=== PATIENT | female | born 1990 | race Caucasian/White ===

== ENCOUNTER 2016-09-16 10:47 | Emergency (ER) | payer SELFPAY ==
[2015-01-11 01:27] VITALS: BMI 27.4
[~2016-09-16 10:47] MED LIST: FERROUS SULFAT325 MG PO; IBUPROFEN400 MG PO; KEFLEX500 MG PO; PERCOCET 5-3251 TAB PO; PROAIR HFA8.5 GM INH; ZITHROMAX250 MG PO
[2016-09-16 13:30] LABS: APPEARANCE HAZY (CLEAR); BILIRUBIN NEGATIVE (NEGATIVE); COLOR YELLOW (YELLOW); GLUCOSE NEGATIVE (NEGATIVE); KETONE NEGATIVE (NEGATIVE); LEUKOCYTE ESTERASE TRACE (NEGATIVE); NITRITE NEGATIVE (NEGATIVE); PROTEIN NEGATIVE (NEGATIVE); SPECIFIC GRAVITY 1.015 (1.005-1.020); UROBILINOGEN NORMAL (NORMAL)
[2016-09-16 13:31] LABS: BACTERIA MANY /hpf (NONE SEEN); MUCUS <1+ /lpf (NONE SEEN); RED CELLS - URINE RARE /hpf (0-5)
== END 2016-09-16 15:20 | disposition home or self-care (01) ==
LOC: D.ER 10:47
PROVIDERS: Emergency Medicine
DX: N76.0 Acute vaginitis (principal); Z20.2 Contact with and (suspected) exposure to infections with a predominantly sexual mode of transmission

== ENCOUNTER 2016-11-16 12:07 | Emergency (ER) | payer OTHER ==
[2015-01-11 01:27] VITALS: BMI 27.4
[2016-11-16 13:19] LABS: APPEARANCE CLEAR (CLEAR); BILIRUBIN NEGATIVE (NEGATIVE); COLOR YELLOW (YELLOW); GLUCOSE NEGATIVE (NEGATIVE); KETONE NEGATIVE (NEGATIVE); LEUKOCYTE ESTERASE NEGATIVE (NEGATIVE); NITRITE NEGATIVE (NEGATIVE); PROTEIN NEGATIVE (NEGATIVE); SPECIFIC GRAVITY 1.005 (1.005-1.020); UROBILINOGEN NORMAL (NORMAL)
== END 2016-11-16 13:57 | disposition home or self-care (01) ==
LOC: D.ER 12:07
PROVIDERS: Nurse Practitioner Acute Care
DX: O26.892 Other specified pregnancy related conditions, second trimester (principal); Z3A.21 21 weeks gestation of pregnancy; H92.02 Otalgia, left ear; H66.92 Otitis media, unspecified, left ear; O23.592 Infection of other part of genital tract in pregnancy, second trimester

== ENCOUNTER 2016-12-04 11:39 | Emergency (ER) | payer SELFPAY ==
[2015-01-11 01:27] VITALS: BMI 27.4
[2016-12-04 12:45] LABS: APPEARANCE TURBID (CLEAR); BILIRUBIN NEGATIVE (NEGATIVE); COLOR YELLOW (YELLOW); GLUCOSE NEGATIVE (NEGATIVE); KETONE SMALL mg/dL (NEGATIVE); LEUKOCYTE ESTERASE 1+ (NEGATIVE); NITRITE NEGATIVE (NEGATIVE); PROTEIN NEGATIVE (NEGATIVE); SPECIFIC GRAVITY 1.015 (1.005-1.020); UROBILINOGEN NORMAL (NORMAL)
[2016-12-04 12:46] LABS: AMORPHOUS SEDIMENT <1+ /lpf (NONE SEEN); BACTERIA MANY /hpf (NONE SEEN); MUCUS <1+ /lpf (NONE SEEN); RED CELLS - URINE RARE /hpf (0-5)
== END 2016-12-04 14:08 | disposition home or self-care (01) ==
LOC: D.ER 11:39
PROVIDERS: Emergency Medicine
DX: O23.42 Unspecified infection of urinary tract in pregnancy, second trimester (principal); Z3A.24 24 weeks gestation of pregnancy; B37.3 Candidiasis of vulva and vagina

== ENCOUNTER 2016-12-24 03:11 | Outpatient (CLI) | payer BC ==
[2015-01-11 01:27] VITALS: BMI 27.4
[2016-12-24 05:42] LABS: UDS - AMPHET NEGATIVE QUAL (NEGATIVE); UDS - BARB NEGATIVE QUAL (NEGATIVE); UDS - BENZO NEGATIVE QUAL (NEGATIVE); UDS - COCAINE NEGATIVE QUAL (NEGATIVE); UDS - METH NEGATIVE QUAL (NEGATIVE); UDS - OPIATE NEGATIVE QUAL (NEGATIVE); UDS - PCP NEGATIVE QUAL (NEGATIVE); UDS - THC POSITIVE QUAL (NEGATIVE)
== END 2016-12-24 05:34 | disposition home or self-care (01) ==
LOC: D.LDO 03:11
PROVIDERS: Obstetrics & Gynecology
DX: O26.892 Other specified pregnancy related conditions, second trimester (principal); Z3A.28 28 weeks gestation of pregnancy; Y04.2XXA Assault by strike against or bumped into by another person, initial encounter; Y93.89 Activity, other specified; Y92.59 Other trade areas as the place of occurrence of the external cause

== ENCOUNTER → 2017-02-10 22:30 | Outpatient (CLI) | payer MEDICAID ==
[2015-01-11 01:27] VITALS: BMI 27.4
[~2017-02-10 22:30] MED LIST changes: +IBUPROFEN800 MG PO; +PERCOCET 7.5/321 TAB PO; +PHENERGAN DM SYR5 ML PO; +PRENATAL COMPLE1 TAB PO
[2017-02-10 23:40] LABS: APPEARANCE CLEAR (CLEAR); BACTERIA MANY /hpf (NONE SEEN); BILIRUBIN NEGATIVE (NEGATIVE); COLOR YELLOW (YELLOW); EPITHELIAL CELLS 0-5 /hpf (0-5); GLUCOSE NEGATIVE (NEGATIVE); KETONE NEGATIVE (NEGATIVE); NITRITE NEGATIVE (NEGATIVE); PROTEIN NEGATIVE (NEGATIVE); UROBILINOGEN NORMAL (NORMAL); WHITE CELLS - URINE 0-5 /hpf (0-5)
== END | disposition home or self-care (01) ==
LOC: D.LDO 22:30
PROVIDERS: Obstetrics & Gynecology
DX: O26.893 Other specified pregnancy related conditions, third trimester (principal); Z3A.34 34 weeks gestation of pregnancy; R10.30 Lower abdominal pain, unspecified

== ENCOUNTER 2017-03-16 12:41 | Inpatient (IN) | payer MEDICAID ==
[~2017-03-16] VITALS: Ht 172.7 cm; Wt 94.3 kg
[~2017-03-16 12:41] MED LIST changes: -IBUPROFEN800 MG PO; -PERCOCET 7.5/321 TAB PO; -PHENERGAN DM SYR5 ML PO; -PRENATAL COMPLE1 TAB PO
[2017-03-16 13:31] LABS: APPEARANCE CLEAR (CLEAR); BILIRUBIN NEGATIVE (NEGATIVE); COLOR YELLOW (YELLOW); GLUCOSE NEGATIVE (NEGATIVE); KETONE NEGATIVE (NEGATIVE); NITRITE NEGATIVE (NEGATIVE); PROTEIN NEGATIVE (NEGATIVE); SPECIFIC GRAVITY 1.015 (1.005-1.020); UROBILINOGEN NORMAL (NORMAL)
[2017-03-16 16:58] LABS: UDS - AMPHET NEGATIVE QUAL (NEGATIVE); UDS - BARB NEGATIVE QUAL (NEGATIVE); UDS - BENZO NEGATIVE QUAL (NEGATIVE); UDS - COCAINE NEGATIVE QUAL (NEGATIVE); UDS - OPIATE NEGATIVE QUAL (NEGATIVE); UDS - PCP NEGATIVE QUAL (NEGATIVE); UDS - THC POSITIVE QUAL (NEGATIVE)
[2017-03-16] MEDS ORDERED: PRENATAL COMPLE1 TAB PO (18:55)
[2017-03-16 19:00] LABS: HEMATOCRIT 35.2 % (36.0-48.0); HEMOGLOBIN 11.6 g/dL (12-16); MCH 30.1 pg (26.0-34.0); MCV 91.2 fL (80.0-100.0); MEAN PLATELET VOLUME 10.9 fL (7.4-10.4); RBC 3.86 10x6/uL (4.00-5.40); RDW 13.7 % (11.5-14.5); WBC 16.5 10x3/uL (4.8-10.8)
[2017-03-16 19:34] VITALS: BP 134/70; Ht 172.7 cm; Wt 94.3 kg
[2017-03-17] VITALS (13 sets, daily range): BP systolic 109–121; BP diastolic 54–76
--- NOTE | 2017-03-17 08:00 | NUR ---
FUNDUS IS FIRM, MIDLINE AT THE UMBILICUS. CHEYENNE PAD IN PLACE.
--- NOTE | 2017-03-17 08:08 | NUR ---
RING CATHETER EMPTIED 100ML URINE IN OR.
--- NOTE | 2017-03-17 08:36 | NUR ---
RECEIVED PT FROM VIA BED TO ROOM 1218. BED LOCKED AND PLACED IN LOW POSITION. VSS. HRRR WITHOUT AUDIBLE MURMUR. BBS CLEAR. BS HYPOACTIVE X 4 QUADS. ABDOMEN SOFT/NON-DISTENDED. FUNDUS FIRM AT U/U. RUBRA LOCHIA MOD AMT. CHUX CHANGED. PERIPADS AND TOWEL IN PLACE. PT MOVES WELL IN BED. NEG HOMANS' SIGN. PPP. NO EDEMA NOTED TO BLE. SCDS ON BLE. PUMP ON. RING TO GRAVITY DRAINING DARK, CONCENTRATED URINE. PIV OF NS WITH PITOCIN 20 UNITS INFUSING AT 125 ML/HR VIA ALARIS PUMP. SITE CLEAR TO RIGHT FOREARM. ICE PACK TO INCISION. DRESSING DRY WITHOUT DRAINAGE NOTED. PT ORIENTED TO ROOM, BED, AND CALL LIGHT. SR UPX 2. CALL LIGHT IN REACH.
--- NOTE | 2017-03-17 08:47 | NUR ---
MORPHINE OINTMENT MILL TENDER STARTED ORDERED. PT INSTRUCTED ON MEDICATION AND USE OF BUTTON. PT DEMONSTRATES UNDERSTANDING.
--- NOTE | 2017-03-17 09:06 | NUR ---
PT WAKES UPON VERBAL STIMULATION. STATES PAIN CONTINUES AT "7" ON 0-10 PAIN SCALE. TORADOL 30 MG GIVEN SIVP OVER 2 MINUTES. PT INSTRUCTED ON MED. VERBALIZES UNDERSTANDING.
--- NOTE | 2017-03-17 10:24 | NUR ---
PT MORE AWAKE. VSS. FUNDUS FIRM AT U/1. RUBRA LOCHIA MOD AMT. NO CLOTS EXPRESSED. PERICARE DONE. TOWEL AND PERIPADS CHANGED. PT REPOSITIONS TO LEFT SIDE. PROPPED WITH PILLOWS. ICE PACK TO INCISION. PT PROVIDED LEMON YOMBA SHOSHONE SODA. ENCOURAGED TO CONSUME SLOWLY.
--- NOTE | 2017-03-17 11:07 | NUR ---
PT LYING TO LEFT SIDE. EYES CLOSED. RESP NON-LABORED. PT NOT DISTURBED TO ALLOW FOR REST. SR UP X 2. CALL LIGHT IN REACH.
--- NOTE | 2017-03-17 12:27 | NUR ---
PT SITTING UP IN BED. VISITS WITH GRANDMOTHER AND ADOPTIVE PARENTS. INFANT IN ROOM. PT DENIES NEEDS OR C/O.
--- NOTE | 2017-03-17 13:15 | NUR ---
I/O COMPLETED. PERICARE DONE. TOWEL AND PERIPADS CHANGED. PT MOVES WELL IN BED. PT REPOSITIONS TO RIGHT SIDE IN BED. PROPPED WITH PILLOW.
--- NOTE | 2017-03-17 14:05 | NUR ---
VSS. PT REPOSITIONS SUPINE IN BED. PILLOWS PLACED BEHIND PT KNEES FOR PT C/O BACK PAIN. PT STATES WILL REST. LIGHTS OUT AND HEAT TURNED DOWN PER PT REQUESTS.
--- NOTE | 2017-03-17 15:20 | NUR ---
DR VANG NOTIFIED OF PT STATUS. NEW ORDERS RECEIVED.
--- NOTE | 2017-03-17 15:28 | NUR ---
TORADOL 30 MG GIVEN SIVP OVER 2 MINUTES. PT INSTRUCTED ON MED. VERBALIZES UNDERSTANDING.
--- NOTE | 2017-03-17 16:30 | NUR ---
PT SITTING UP IN BED. PT OTHER CHILD IN PT LAP. PT SISTER IN ROOM WITH ADOPTIVE FAMILY. PT REQUESTS SISTER OR ADOPTIVE MOM TO COME TO ROOM TO CHANGE OTHER CHILD.
--- NOTE | 2017-03-17 16:35 | NUR ---
PT INFORMED THAT CHILD CANNOT SPEND THE NIGHT WITH PT. PT STATES THE ADOPTIVE MOM WILL HELP CARE FOR OTHER CHILD.
--- NOTE | 2017-03-17 17:15 | NUR ---
PT MANAGER PAID LIGHT. REQUESTS HYGIENE PRODUCTS. ADOPTIVE MOM IN ROOM, ALONG WITH PT OTHER CHILD. PT AGAIN INFORMED THAT CHILD CANNOT STAY WITH PT WITHOUT ANOTHER ADULT WITH PT. PT STATES WILL FIND SOMEONE TO COME GET CHILD.
--- NOTE | 2017-03-17 17:39 | NUR ---
PT SITTING UP IN BED. CONSUMING REG DIET. DENIES NEEDS OR C/O.
--- NOTE | 2017-03-17 17:45 | NUR ---
PIV CONVERTED TO SALINE LOCK. RING DC'D WITH 300 ML OF DARK, YELLOW URINE NOTED IN BAG. PT OOB AND AMB TO BR. VOIDS FREELY WITHOUT CATCHING URINE IN SPECIPAN. PERIARE DONE PER PT. PANTIES AND PADS ON. GOWN CHANGED. BED LINENS CHANGED. PT BACK TO BED. KELLY ACTIVITY WELL.
--- NOTE | 2017-03-17 18:55 | NUR ---
REPORT GIVEN TO ON-COMING SHIFT. PT CALLS ON LIGHT. REQUESTING PAIN MEDICATION.
--- NOTE | 2017-03-17 19:02 | NUR ---
PATIENT SITTING UP IN BED, BED LOCKED IN LOW POSITION. CALL GORMAN IN REACH. FAMILY AT BEDSIDE. PERCOCET 5/325MG TWO TABS PO AT THIS TIME WITH WATER FOR 7/10 INCISIONAL PAIN. DENIES OTHER NEEDS. PATIENT INSTRUCTED TO CALL WITH ANY FURTHER NEEDS.
--- NOTE | 2017-03-17 19:45 | NUR ---
ASSESSMENT PER FLOW SHEET, SALINE LOCK IN RIGHT FA INTACT WITH NO REDNESS OR EDEMA, FF, ML, U/1, BIKINI INC WITH SMALL DRESSING INTACT WITH DRIED DRAINAGE NOTED, FRESH ICE PACK TO ABD, LIGHT BLEEDING NOTED WITH NO CLOTS ON CHEYENNE PAD, PT DENIES FLATUS, PT INST ON VOIDING, PT VERBALIZES UNDERSTANDING, PT REQUESTED AND PROVIDED JAYNA CRACKER AND H20 FOR DAUGHTER, PT DENIES FURTHER NEEDS AT THIS TIME, FRIEND AT BEDSIDE
--- NOTE | 2017-03-17 20:25 | NUR ---
PT VISTING WITH FRIEND, 2 YEAR OLD DAUGHTER LAYING IN RECLINER, PT INQUIRES WHAT TIME HER DAUGHTER NEEDED TO GO HOME, PT INFORMED NO LATER THAN 10/11 PM, PT STATES "OK, MY FRIEND GETS OFF WORK AROUND 8:30 AND WILL BE LEAVING AROUND RRsat AROUND THAT TIME", PT REQUESTED AND PROVIDED PEANUT BUTTER, JELLY, AND CRACKERS FOR DAUGHTER, PT DENIES FURTHER NEEDS OR PAIN AT THIS TIME, TRASH REMOVED
--- NOTE | 2017-03-17 21:45 | NUR ---
PT JUST COMING OUT OF BR, WASHED HANDS, SALINE LOCK FLUSHED, ADM TORADOL DILUTED IN SALINE SIVP, SALINE LOCK FLUSHED, PT REQUESTS TO AMB IN LAW, INFORMED PT THAT SHE CAN AMB AROUND UNIT ONLY, PT VERBALIZES UNDERSTANDING, EXTRA GOWN AND BLUE SOCKS PROVIDED, WENT TO E[employer]TY [employer], PT STATES "I'M SORRY, I KEEP FORGETTING TO PEE IN THAT", PT REPORTS VOIDING A LARGE AMOUNT, PT INST TO USE [employer] NEXT TIME, PT VERBALIZES UNDERSTANDING, DENIES FURTHER NEEDS AT THIS TIME
--- NOTE | 2017-03-17 22:29 | NUR ---
PT AMB IN LAW, GAIT STEADY, REQUESTED AND SERVED FRESH H20, PT GOES TO ROOM WITH ADOPTIVE PARENTS
--- NOTE | 2017-03-17 23:02 | NUR ---
PT BACK IN ROOM, PT REQUESTS AMBIEN TO HELP HER SLEEP, STATES "I'M REALLY HAVING A HARD TIME BEING AWAY FROM MY OTHER DAUGHTER", ADM YASMEENIEN AND MYLICON PO PER MD ORDERS, SEE EMAR, SCD'S PLACED ON AND WORKING PROPERLY, VS OBTAINED, PT DENIES FURTHER NEEDS
--- NOTE | 2017-03-18 01:04 | NUR ---
PT AWAKE, TEARY EYED, JUST UPSET BECAUSE SHE DOESN'T LIKE TO BE AWAY FROM HER DAUGHTER AND REPORTS THAT SHE KEEPS CALLING HER FRIEND AND SHE KEEP HANGING UP ON HER, PT C/O PAIN, ADM PERCOCET PO PER MD ORDERS, SEE EMAR, WITH FRESH H20, SCD'S CONTINUE ON AND WORKING PROPERLY, PT DENIES FURTHER NEEDS, MALE FRIEND AT BEDSIDE
--- NOTE | 2017-03-18 01:22 | NUR ---
PT WEIGHT TRAINING INSTRUCTOR LIGHT, REQUESTED AND SERVED APPLESAUCE, DENIES FURTHER NEEDS
--- NOTE | 2017-03-18 01:55 | NUR ---
PT INFORMATION DEVELOPER LIGHT, SCD'S REMOVED, PT UP TO BR, GAIT STEADY, PT INST TO USE CALL LIGHT FOR ANY NEEDS AND WHEN BACK TO BED, PT VERBALIZES UNDERSTANDING
--- NOTE | 2017-03-18 02:10 | NUR ---
PT WEBSPHERE COMMERCE ARCHITECT LIGHT, PT BACK TO BED, SCD'S RECONNECTED AND WORKING PROPERLY, EMPTIED 650 MLS OF LIGHTLY BLOOD TINGED URINE, 1 SMALL STRINGY CLOT NOTED, EMPTIED FROM [place] HAT, PT RATES PAIN 11/21, STATES "IT'S GETTING BETTER", PT DENIES FURTHER NEEDS
[2017-03-18 03:52] VITALS: BP 108/62
--- NOTE | 2017-03-18 03:52 | NUR ---
PT RESTING WITH EYES CLOSED, AROUSES TO SOFT VERBAL STIMULATION, VS OBTAINED, SALINE LOCK FLUSHED, ADM TORADOL, DILUTED IN NS, SIVP PER MD ORDERS, SEE EMAR, SALINE LOCK FLUSHED, PT DENIES NEEDS OR PAIN AT THIS TIME, SCD'S CONTINUE ON AND WORKING PROPERLY
--- NOTE | 2017-03-18 04:36 | NUR ---
PT RESTING WITH EYES CLOSED, RESP QUIET, NO DISTRESS NOTED, LEFT UNDISTURBED AT THIS TIME, SCD'S CONTINUE ON AND WORKING PROPERLY
--- NOTE | 2017-03-18 06:16 | NUR ---
PT RESTING WITH EYES CLOSED, RESP QUIET, NO DISTRESS NOTED, LEFT UNDISTURBED AT THIS TIME
[2017-03-18 06:32] LABS: BASOPHILS 0.1 % (0-2); EOSINOPHILS 1.1 % (0-7); IMMATURE GRANULOCYTES 0.4 % (0-5); LYMPHOCYTES 15.6 % (15-50); MCH 30.2 pg (26.0-34.0); MCHC 33.2 g/dL (31.0-37.0); MCV 90.8 fL (80.0-100.0); MEAN PLATELET VOLUME 10.7 fL (7.4-10.4); MONOCYTES 6.1 % (2-11); NEUTROPHILS 76.7 % (40-80); PLATELET COUNT 235 10x3/uL (130-400)
[2017-03-18 06:33] LABS: HEMATOCRIT 26.8 % (36.0-48.0); HEMOGLOBIN 8.9 g/dL (12-16); RBC 2.95 10x6/uL (4.00-5.40)
--- NOTE | 2017-03-18 07:00 | NUR ---
SHIFT REPORT TO ALEXEI PEDRO RN
[2017-03-18 07:25] VITALS: BP 107/59
[2017-03-18 07:28] LABS: RAPID PLASMA REAGIN Non Reactive (Non Reactive)
--- NOTE | 2017-03-18 07:30 | NUR ---
PT IS RECEIVED LYING IN BED THIS AM. SHE STATES THAT SHE IS JUST WAKING UP. GEN- AWAKE, ALERT. LUNGS- CLEAR. HEART- RRR. ABD- WITH LOW TRANSVERSE INCISION WITH PRIMAPORE DRESSING. SMALL AMT DRIED BLOOD NOTE DON DRESSING. SMALL VAGINAL BLEEDING. SHE HAS VOIDED X 3. EXT- WITH SCD'S INTACT LE. BED IS LOW. SIDE RAILS UP X 2 AND CALL LIGHT IN REACH. SHE STATES THAT HER PAIN IS A 7-8. SALINE LOCK NOTED R FOREARM. PATENT.
--- NOTE | 2017-03-18 08:00 | NUR ---
DR VANG IS HERE TO SEE PT. NEW ORDERS REVIEWED.
--- NOTE | 2017-03-18 08:20 | NUR ---
PT REQUESTED PAIN MED. PERCOCET 10/ 325 GIVEN FOR A PAIN OF 8 IN HER ABDOMEN AND BACK.
--- NOTE | 2017-03-18 08:29 | NUR ---
PT STATES THAT HER 2 YEAR OLD DAUGHTER IS STAYING UP HER TONIGHT WITH HER BECAUSE SOMEONE ELSE WAS STAYING WITH HER. SHE STATES THAT SHE HAS THIS APPROVED. I TOLD HER THAT I JUST HAD TO MAKE SURE THIS IS OK. I CHECKED WITH SHARA ESCALANTE PREFORM PLATE MAKER AND SHE STATES THAT IT IS OK FOR HER 2 YEAR OLD TO STAY UP HERE IF THERE IS SOMEONE ELSE UP HERE TO TAKE CARE OF THE CHILD.
--- NOTE | 2017-03-18 13:00 | NUR ---
PT AND HER 2 YEAR OLD ARE SLEEPING IN BED. BED IS LOW, SIDE RAILS UP X 2 AND CALL LIGHT IN REACH.
--- NOTE | 2017-03-18 13:38 | NUR ---
PT WOKE UP AND HER DAUGHTER. MOTHER STATES THAT HER CHILD IS SICK WITH A COLD. MOTHER REQUEST PAIN MED.
--- NOTE | 2017-03-18 14:00 | NUR ---
PT REQESTED TORADOL. GAVE IV PUSH SLOWLY IN SALINE LOCK R FOREARM AND FLUSHED WITH SALINE.
--- NOTE | 2017-03-18 14:05 | NUR ---
LATE ENTRY: PT. TO DOOR W/TEARS IN HER EYES REQUESTING THIS RN TO ROOM. THIS RN TO ROOM. PT CRYING AND STATING "THAT OTHER NURSE IS SO MEAN! SHE GAVE ME MY MEDICINE IN MY IV AND I TOLD HER THAT IT WAS HURTING AND ASKED HER NOT TO PUSH THE MEDICINE SO FAST. AND SHE SAID WELL, THAT'S HOW WE DO IT." PT C/O PAIN AT IV SITE STILL. IV SITE INSPECTED. SITE LEAKING, REDNESS, SWELLING, TENDERNESS AND WARMTH NOTED. IV APPEARS INFILTRATED. SALINE LOCK REMOVED INTACT. BANDAID PLACED OVER SITE. PT STILL CONTINUES TO C/O ABOUT PRIMARY NURSE'S ATTITUDE AND UNPLEASANT PERSONALITLY. PT REQUEST THAT NURSE NOT CARE FOR HER ANYMORE. PT INFORMED PER THIS RN THAT SHE WILL BE TRANSFERED TO A NEW ROOM AND A DIFFERENT NURSE WILL ASSUME CARE OF HER. PT IS PLEASED WITH THIS POC AND IS AGREEABLE TO BEING TRANSFERED. PT TRANSFERED AMB TO [facility]. ORIENTED TO ROOM, CALL LIGHT AND PHONE NUMBERS. PERSONAL CARE ITEMS PROVIDED FOR PT TO SHOWER. PT QUESTIONED ABOUT WHO WILL BE HERE TO STAY WITH HER 2YRS OLD DAUGHTER. PT REPORTS THE ADOPTIVE FATHER OF THE NBN WILL BE STAYING IN THE ROOM W/PT TO CARE FOR THE 2YR OLD. THIS RN SPEAKS WITH ADOPTIVE MOTHER AND SHE CONFIRMS THAT THE ADOPTIVE FATHER WILL BE THE RESPONSIBILE ADULT TO CARE FOR THE 2YR OLD. PT W/OUT C/O. PAIN ASSESSED. PT REPORTS SHE HAS INCISIONAL PAIN THAT SHE RATES 7-8/10. REQUEST PAIN MEDICATION ONCE SHE IS OUT OF THE SHOWER. 2YR OLD HAS DONE TO [facility] W/ADOPTIVE FATHER AT THIS TIME. REPORT GIVEN TO Pieter TIERNEY RN
--- NOTE | 2017-03-18 14:15 | NUR ---
PT WAS TRANSFERRED TO [facility] AND LABOR AND DELIVERY WILL TAKE OVER PT'S CARE.
--- NOTE | 2017-03-18 15:30 | NUR ---
PT IN SHOWER. REQUESTS MYLICON CHEW TAB FOR GAS. PT INSTRUCTED TO CALL NURSE WHEN FINISHED WITH SHOWER. PT VERBALIZES UNDERSTANDING.
--- NOTE | 2017-03-18 16:17 | NUR ---
LATE ENTRY: PT MEDICATED W/PERCOCET 5/325MG TAB PER REQUEST SO SHE WON'T BE DROWZY WHEN HER DAUGHTER RETURNS. SIMETHICONE 80MG PO GIVEN FOR PT C/O GAS PAIN.
--- NOTE | 2017-03-18 17:20 | NUR ---
PT C/O INCISIONAL/ABDOMINAL PAIN OF "7" ON 0-10 PAIN SCALE. PERCOCET 5/325 GIVEN PO ORDERED. PT INSTRUCTED ON MED. VERBALIZES UNDERSTANDING.
--- NOTE | 2017-03-18 17:45 | NUR ---
PT CALLS ON LIGHT. STATES "I COUGHED AND I THINK I PULLED APART MY INCISOIN". PT TO BED. INCISION WITH ALL ML INTACT. NO REDNESS, SWELLING OR DRAINAGE NOTED TO INCISION. PERIPAD TO INCISION. PT REASSURED.
--- NOTE | 2017-03-18 18:12 | NUR ---
PT AMBULATORY IN ROOM. STATES PAIN NOW "3" ON 0-10 PAIN SCALE. STATES C/O MILD BURNING TO INCISION. PT INFORMED THAT BURNING IS COMMON. PT VERBALIZES UNDERSTANDING.
--- NOTE | 2017-03-18 19:20 | NUR ---
RN TO PT BS FOR LI. PT SITTING ON COUCH, IN NO ACUTE DISTRESS, INTERACTING WITH TODDLER DAUGHTER. PT IS A 26YO G6 NOW WITH PRIMARY C/S 03/17/17 @ 0711. INFANT @ 39.6 WKS GESTATION, VIABLE FEMALE . PRIMARY C/S FOR FAILURE TO DESCEND. INFANT IN PROCESS OF ADOPTION. ADOPTIVE PARENTS IN HOUSE TO CARE FOR . AAOX3. HR REGULAR. LUNGS CTAB. ABDOMEN SOFT AND NON TENDER. BS ACTIVE TIMES 4. LOWER TRANSVERSE INCISION NOTED TO ABDOMEN. INCISION WITH ML IN PLACE, WELL PROXIMATED WITH NO REDNESS, EDEMA, OR DRAINAGE NOTED TO SITE. FUNDUS NOT PALPATED. PT STATES SHE IS PASSING GAS BUT HAS NOT HAD A BM SINCE C/S. DESIRES STOOL SOFTNER. PT DENIES DIFFICULTY VOIDING. CHEYENNE PAD AND PANTIES IN PLACE. LOCHIA RUBRA SCANT. NO IV ACCESS AT THIS TIME. PT RATES PAIN 4/10. MEDICATION SCHEDULE REVIEWED WITH PT. QUESTIONS ANSWERED. VERBALIZED UNDERSTANDING. PT DENIES ANY NEEDS AT THIS TIME. BED IN LOW POSITION, SIDE RAILS UP TIMES 2, CALL LIGHT AND PHONE IN REACH. WILL CONT TO MONITOR PT STATUS.
[2017-03-18 19:33] VITALS: BP 120/82
--- NOTE | 2017-03-18 19:59 | NUR ---
MORGAN PROVIDED TO PT PER DR. VANG'S ORDERS. TREAT BOX PROVIDED TO PT. PT DENIES ANY FURTHER NEEDS AT THIS TIME. BED IN LOW POSITION, SIDE RAILS UP TIMES 2, CALL LIGHT AND PHONE IN REACH. WILL CONT TO MONITOR PT STATUS.
--- NOTE | 2017-03-18 21:12 | NUR ---
RN CALLED TO PT BS. PT C/O PAIN, RATES 11/21, REQUESTS MEDICATION. 1 TAB IBUPROFEN AND 2 TABS PERCOCET 5 PROVIDED TO PT AT THIS TIME. LINENS PROVIDED TO PT CHILD FOR NIGHT. COUCH PULLED NEXT TO PT BS AND LINENS PLACED TO BED. RN WILL ASSIST ADOPTIVE PARENTS IN MONITORING TODDLER WHILE SLEEPING. PT DENIES ANY FURTHER NEEDS AT THIS TIME. BED IN LOW POSITION, SIDE RAILS UP TIMES 2, CALL LIGHT AND PHONE IN REACH. WILL CONT TO MONITOR PT STATUS.
--- NOTE | 2017-03-18 22:15 | NUR ---
RN TO PT BS FOR ROUNDS. PT RESTING IN BED IN FOWLERS POSITION, PT VERY TEARFUL. RN DISCUSSED ISSUES THAT WERE CONCERNING HER. PT MAINLY CONCERNED ABOUT ADOPTIVE FAMILY AND THE CHOICE TO GIVE HER UP FOR ADOPTION, EVEN THOUGH SHE IS AWARE IT IS THE BEST CHOICE FOR THE INFANT. CONCERNS ADRESSED BY RN. PT DESIRES MEDICATION TO ASSIST WITH SLEEP. AMBIEN 10MG PROVIDED TO PT PO AT THIS TIME. PT DENIES ANY FURTHER NEEDS. BED IN LOW POSITION, SIDE RAILS UP TIMES 2, CALL LIGHT AND PHONE IN REACH. TODDLER REMAINS AT PT BS, ON COUCH, SLEEPING AT THIS TIME. WILL CONT TO MONITOR PT STATUS.
--- NOTE | 2017-03-18 23:32 | NUR ---
RN TO PT BS FOR ROUNDS. PT SITTING IN BED IN NO ACUTE DISTRESS, TEXTING ON PHONE. PT DENIES ANY NEEDS AT THIS TIME. BED IN LOW POSITION, SIDE RAILS UP TIMES 2, CALL LIGHT AND PHONE IN REACH. TODDLER REMAINS ASLEEP AT PT BS. WILL CONT TO MONITOR PT STATUS.
--- NOTE | 2017-03-19 02:24 | NUR ---
RN TO PT BS FOR ROUNDS. PT RESTING IN BED IN FOWLERS POSITION, WITH EYES CLOSED, IN NO ACUTE DISTRESS. RESPIRATIONS EVEN AND UNLABORED. BED IN LOW POSITION, SIDE RAILS UP TIMES 2, CALL LIGHT AND PHONE IN REACH. TODDLER REMAINS AT PT BS ASLEEP ON COUCH. WILL CONT TO MONITOR PT STATUS.
--- NOTE | 2017-03-19 04:51 | NUR ---
RN TO PT BS FOR ROUNDS. PT RESTING IN BED IN FOWLERS POSITION, WITH EYES CLOSED, IN NO ACUTE DISTRESS. RESPIRATIONS EVEN AND UNLABORED. BED IN LOW POSITION, SIDE RAILS UP TIMES 2, CALL LIGHT AND PHONE IN REACH. TODDLER REMAINS ASLEEP ON COUCH NEXT TO BED. WILL CONT TO MONITOR PT STATUS.
--- NOTE | 2017-03-19 06:01 | NUR ---
RN CALLED TO PT BS WITH C/O PAIN, RATES 12/22, REQUESTS MEDICATION. 1 TAB IBUPROFEN AND 2 TABS PERCOCET 5 PROVIDED TO PT AT THIS TIME WITH FRESH SPRITE. PT DENIES ANY FURTHER NEEDS. BED IN LOW POSITION, SIDE RAILS UP TIMES 2, CALL LIGHT AND PHONE IN REACH. TODDLER REMAINS AT PT BS ON COUCH SLEEPING. WILL CONT TO MONITOR PT STATUS.
[2017-03-19 07:15] VITALS: BP 118/80
--- NOTE | 2017-03-19 07:15 | NUR ---
RECEIVED PT SITTING UP IN BED. 2 YEAR OLD DAUGHTER IN BED WITH PT. PT AWAKE. AAO X 4. VSS. HRRR WITHOUT AUDIBLE MURMUR. BBS CLEAR. BS X 4. ABDOMEN SOFT/NON-DISTENDED. ABDOMINAL INCISION OPEN TO AIR. ML INTACT. NO REDNESS, SWELLING OR DRAINAGE NOTED. NEG HOMANS' SIGN. PPP. MILD NON-PITTING EDEMA NOTED TO BLE. PT DENIES C/O OR NEEDS. SR UPX2 . CALL LIGHT IN REACH.
--- NOTE | 2017-03-19 08:00 | NUR ---
DR VANG HERE. VISITS WITH PT. NEW ORDERS RECEIVED.
--- NOTE | 2017-03-19 08:23 | NUR ---
PT CALLS ON LIGHT. REQUESTS AND RECEIVES TOWELS.
[2017-03-19] MEDS ORDERED: PHENERGAN DM SYR5 ML PO (09:16)
[2017-03-19] MEDS ORDERED: PERCOCET 7.5/321 TAB PO (09:16)
[2017-03-19] MEDS ORDERED: IBUPROFEN800 MG PO (09:17)
--- NOTE | 2017-03-19 09:49 | NUR ---
PT AMBULATORY IN ROOM. PT GIVEN INFORMATION SHEETS ON TDAP AND MMR. PT DECLINES FLU VACCINE.
--- NOTE | 2017-03-19 10:41 | NUR ---
PT LYING SUPINE IN BED. 2 YEAR OLD IN BED WITH PT. PT DENIES PAIN OR NEEDS.
--- NOTE | 2017-03-19 12:30 | NUR ---
PT VISITING WITH ATTORNY AT THIS TIME. REQUESTS PERCOCET AND MOTRIN FOR C/O INCISIONAL PAIN OF "7" ON 0-10 PAIN SCALE.
--- NOTE | 2017-03-19 12:43 | NUR ---
PERCOCET 5/325 2 TABS AND MOTRIN 600 MG, MYLICON 80 MG GIVEN PO FOR PT C/O INCISIONAL/GAS PAIN OF "7" ON 0-10 PAIN SCALE. PT INSTRUCTED ON MEDS. VERBALIZES UNDERSTANDING.
--- NOTE | 2017-03-19 13:42 | NUR ---
DISCHARGE INSTRUCTIONS GIVEN TO PT. PT VERBALIZES UNDERSTANDING OF ALL INSTRUCTIONS. COPIES GIVEN TO PT. PT GIVEN RX FOR PERCOCET 7.5 AND MOTRIN 800 MG.
--- NOTE | 2017-03-19 14:15 | NUR ---
PT AMBULATORY IN ROOM. PREPARING FOR DISCHARGE.
--- NOTE | 2017-03-19 15:15 | NUR ---
PT DISCHARGED IN STABLE CONDITION VIA AMBULATORY PER PT REQUEST TO [facility] IN FRONT EXIT. PT KELLY WELL.
--- NOTE | 2017-03-19 22:28 | OP ---
PATIENT NAME: DERIC KULKARNI MEDICAL RECORD: [id number] :90 LOCATION:[id number] ADMISSION DATE:03/16/17 SURGEON: TAJ VANG MD DATE OF OPERATION: 03/17/2017 PREDELIVERY DIAGNOSES: 1. Active labor at term. 2. Arrest of dilation. POSTOPERATIVE DIAGNOSES: 1. Active labor at term. 2. Arrest of dilation. PROCEDURE: Primary low transverse section. SURGEON: Taj Vang MD ANESTHESIOLOGIST: Jean Claude OLIVA. ANESTHETIC: Continuous lumbar epidural. FINDINGS: Viable female infant, DORIAN presentation with large caput. Blood-tinged urine noted at the close of the procedure. Uterus, tubes, and ovaries were unremarkable. ESTIMATED BLOOD LOSS: 850 cc. URINE OUTPUT: 100 cc of blood-tinged urine. FLUIDS: 1400 cc of Lactated Ringer's. COMPLICATIONS: None. DRAINS: Zavala to gravity. INDICATIONS: The patient is a 26-year-old parous female in active labor. The patient progressed and arrested at anterior lip. There was increased swelling with the anterior lip and increased molding. Some variable decelerations were noted prior to the procedure. DESCRIPTION OF PROCEDURE: After informed consent was assured, the patient was taken to the operating room where anesthetic is assessed and found to be adequate after she was prepped and draped. Incisions made on the lower abdomen, carried down to the underlying layer of the fascia, which is opened in the midline and extended laterally. The rectus bellies were in the midline after being dissected free of the fascia. The peritoneum was entered and an Edson O retractor inserted and tightened. A bladder blade was inserted and a low transverse hysterotomy was performed after development of a bladder flap. The was delivered on to the abdomen atraumatically. The cord was doubly clamped and cut. This is the cord clamping that occurs after reducing a tight nuchal cord. After the infant was passed to the attendants, placenta was delivered via Crede maneuver. Uterus is cleared of all clot and debris and closed in a running locked fashion with Vicryl. Continued bleeding from the left corner necessitated O'[place]burgh stitch. This was OPERATIVE REPORT [id number] DERIC KULKARNI performed. Pressure is applied and hemostasis achieved. The incision is inspected. Adequate hemostasis is achieved and the patient. The pelvis was now irrigated with water. Inspection of the bladder flap reveals an unremarkable bladder and inspection reveals no obvious injury. There is no rosalba blood in the catheter. The rectus bellies are inspected and found to be hemostatic and the fascia was closed with a looped PDS. Subcutaneous tissues were irrigated, bleeding vessels cauterized, and then the tissue reapproximated with plain gut stitch. [place] are applied. Sterile dressing is applied. Sponge, lap, and needle count has been correct times 3. The patient will be sent to labor and delivery for her care. TRANSINT:[id number] Voice Confirmation ID: [id number] DOCUMENT ID: [id number] TAJ VANG MD at 2228 CC: [id number] DICTATION DATE: 03/17/17 0751 [employer] ENGINEER: 03/17/17 1133 DIS IN 03/19/17 [facility] [address] [place] [address]
== END 2017-03-19 15:15 | disposition home or self-care (01) | DRG 765 ==
LOC: D.LDO 12:41 → D.WS 18:30 → D.LD 18:30 → D.WS 03-17 08:00 → D.LD 03-18 14:48
PROVIDERS: ADMIT Obstetrics & Gynecology
PROC: 10D00Z1 Extraction of Products of Conception, Low, Open Approach (ICD-10-PCS; principal; 2017-03-17 07:00)
DX: O62.1 Secondary uterine inertia (principal); O99.324 Drug use complicating childbirth; O76 Abnormality in fetal heart rate and rhythm complicating labor and delivery; O69.1XX0 Labor and delivery complicated by cord around neck, with compression, not applicable or unspecified; O77.0 Labor and delivery complicated by meconium in amniotic fluid; Z3A.39 39 weeks gestation of pregnancy; F12.90 Cannabis use, unspecified, uncomplicated; Z37.0 Single live birth

== ENCOUNTER 2017-05-28 03:42 | Emergency (ER) | payer MEDICAID ==
[~2017-05-28 03:42] MED LIST changes: +IBUPROFEN800 MG PO; +PERCOCET 7.5/321 TAB PO; +PHENERGAN DM SYR5 ML PO; +PRENATAL COMPLE1 TAB PO
[2017-05-28 04:11] LABS: BASOPHILS 0.3 % (0-2); EOSINOPHILS 4.1 % (0-7); HEMATOCRIT 38.4 % (36.0-48.0); HEMOGLOBIN 12.6 g/dL (12-16); IMMATURE GRANULOCYTES 0.1 % (0-5); LYMPHOCYTES 42.9 % (15-50); MCH 28.6 pg (26.0-34.0); MCHC 32.8 g/dL (31.0-37.0); MCV 87.1 fL (80.0-100.0); MEAN PLATELET VOLUME 9.8 fL (7.4-10.4); MONOCYTES 6.9 % (2-11); NEUTROPHILS 45.7 % (40-80); PLATELET COUNT 255 10x3/uL (130-400); RBC 4.41 10x6/uL (4.00-5.40); RDW 13.7 % (11.5-14.5); WBC 7.2 10x3/uL (4.8-10.8)
[2017-05-28 04:24] LABS: APPEARANCE HAZY (CLEAR); BILIRUBIN NEGATIVE (NEGATIVE); COLOR YELLOW (YELLOW); GLUCOSE NEGATIVE (NEGATIVE); KETONE NEGATIVE (NEGATIVE); NITRITE NEGATIVE (NEGATIVE); PROTEIN NEGATIVE (NEGATIVE); SPECIFIC GRAVITY 1.015 (1.005-1.020); UROBILINOGEN NORMAL (NORMAL)
[2017-05-28 04:25] LABS: WHITE CELLS - URINE 0-5 /hpf (0-5)
[2017-05-28 04:26] LABS: BACTERIA MODERATE /hpf (NONE SEEN); EPITHELIAL CELLS 0-5 /hpf (0-5); RED CELLS - URINE 0-5 /hpf (0-5)
[2017-05-28 04:27] LABS: ALBUMIN 3.9 g/dL (3.4-5.0); ALKALINE PHOSPHATASE 70 U/L (46-116); ALT (SGPT) 31 U/L (10-68); CALC OSMOLALITY 279 mosm/kg (275-300); CALCIUM 8.5 mg/dL (8.5-10.1); CARBON DIOXIDE 25.4 mmol/L (21.0-32.0); CHLORIDE - SERUM 104 mmol/L (98-107); CREATININE - SERUM 0.9 mg/dL (0.6-1.3); GLUCOSE 95 mg/dL (74-106); LIPASE 176 U/L (73-393); POTASSIUM - SERUM 3.8 mmol/L (3.5-5.1); PROTEIN - SERUM 7.6 g/dL (6.4-8.2); SODIUM 140 mmol/L (136-145); UREA NITROGEN 16 mg/dL (7-18); eGFR NON AFRICAN AMERICAN 80 mL/min (90-120)
[2017-05-28 04:30] LABS: HCG SERUM NEGATIVE (NEGATIVE)
== END 2017-05-28 04:48 | disposition home or self-care (01) ==
LOC: D.ER 03:42
PROVIDERS: Emergency Medicine
DX: N39.0 Urinary tract infection, site not specified (principal)

== ENCOUNTER 2017-07-23 07:45 | Day surgery (SDC) | payer MEDICAID ==
[2017-07-21 16:38] LABS: BASOPHILS 0.3 % (0-2); EOSINOPHILS 3.5 % (0-7); HEMATOCRIT 37.5 % (36.0-48.0); HEMOGLOBIN 12.2 g/dL (12-16); IMMATURE GRANULOCYTES 0.1 % (0-5); LYMPHOCYTES 38.1 % (15-50); MCH 29.3 pg (26.0-34.0); MCHC 32.5 g/dL (31.0-37.0); MCV 89.9 fL (80.0-100.0); MEAN PLATELET VOLUME 9.7 fL (7.4-10.4); MONOCYTES 5.5 % (2-11); NEUTROPHILS 52.5 % (40-80); PLATELET COUNT 253 10x3/uL (130-400); RBC 4.17 10x6/uL (4.00-5.40); RDW 14.7 % (11.5-14.5); WBC 7.4 10x3/uL (4.8-10.8)
[~2017-07-23] VITALS: Ht 172.7 cm; Wt 81.6 kg
--- NOTE | ~2017-07-23 | OP ---
PATIENT NAME: DERIC KULKARNI MEDICAL RECORD: [id number] :90 LOCATION:D.OPS ADMISSION DATE: SURGEON: TAJ VANG MD DATE OF OPERATION: 07/23/2017 PREOPERATIVE DIAGNOSES: 1. Pelvic pain. 2. Dysfunctional uterine bleeding. POSTOPERATIVE DIAGNOSES: 1. Pelvic pain. 2. Dysfunctional uterine bleeding. 3. Pelvic adhesions. 4. Possible uterine polypoid mass. PROCEDURES: 1. Diagnostic laparoscopy. 2. Laparoscopic lysis of adhesions. 3. Hysteroscopy. 4. Curettage. SURGEON: Taj Vang MD ANESTHESIOLOGIST: Denny Valles MD ANESTHESIA: General. FINDINGS: The uterus is enlarged and boggy. There were dense adhesions anteriorly to the abdominal wall. At the time of hysteroscopy, polypoid mass is seen arising from the anterior uterine wall. Scant to moderate amount of tissue returned at the time of curettage. SPECIMEN REMOVED: Endometrial curettings. SPECIMEN DISPOSITION: Pathology. ESTIMATED BLOOD LOSS: Minimal. FLUIDS: 1 liter. URINE OUTPUT: Quantity sufficient void prior to procedure. COMPLICATIONS: None. DRAINS: None. INDICATIONS: The patient is a 26-year-old female with heavy irregular periods and intense pelvic pain. The patient has been tried on conservative therapy without resolution of symptoms and desires aggressive management. DESCRIPTION OF PROCEDURE: After informed consent was assured, the patient was taken to the operating room, anesthetic was obtained without difficulty. The patient is now prepped and draped in the usual sterile fashion and has been placed in Hayden stirrups. Incisions made at the umbilicus to accommodate a 5-mm trocar which is inserted without difficulty and pneumoperitoneum was developed. OPERATIVE REPORT [id number] DERIC KULKARNI Accessory ports placed in the midline, 2 fingerbreadths above the symphysis. Through this port, a blunt probe was used to manipulate the bowel free of the pelvis with the patient in Trendelenburg position. The uterus is inspected. A dense band of tissue is encountered anteriorly. The tissue is taken down with Bovie cautery and monopolar setting of 20. After this had been freed, the inspection of the lower pelvis and rest of the abdomen is unremarkable. The trocars were removed. Pneumoperitoneum has been released and the skin was reapproximated. Attention was directed to the vagina where the cervix was grasped, dilated, and a hysteroscopy was performed. A polypoid mass is seen arising from the anterior wall of the uterus. Dilation continues and a #1 curette is used to obtain good cry throughout with removal of the mass and tissue sent to pathology. The single tooth tenaculum was removed. Sponge, lap, and needle counts correct times 2. The patient is awakened and went to the recovery room in stable condition. TRANSINT:[id number] Voice Confirmation ID: [id number] DOCUMENT ID: [id number] TAJ VANG MD at 1648 CC: [id number] DICTATION DATE: 07/23/[address] JUDGE: 07/23/17 1709 [facility] 07/23/[address] [facility] [address] [place] [address]
[2017-07-23 07:37] VITALS: BP 114/72; Ht 172.7 cm; Wt 81.6 kg
[~2017-07-23 07:45] MED LIST changes: +TYLENOL W/CODEI1 TAB
[2017-07-23 08:11] LABS: HCG URINE NEGATIVE (NEGATIVE)
== END 2017-07-23 16:43 | disposition home or self-care (01) ==
LOC: D.OPS 07:45
PROVIDERS: Obstetrics & Gynecology
DX: N73.6 Female pelvic peritoneal adhesions (postinfective) (principal); N93.8 Other specified abnormal uterine and vaginal bleeding; N71.1 Chronic inflammatory disease of uterus; N85.8 Other specified noninflammatory disorders of uterus; Z01.812 Encounter for preprocedural laboratory examination

== ENCOUNTER 2018-09-22 18:11 | Emergency (ER) | payer MEDICAID ==
[2018-09-22 18:16] VITALS: BMI 26.0
[2018-09-22 18:48] LABS: BASOPHILS 0.2 % (0-2); EOSINOPHILS 1.9 % (0-7); HEMATOCRIT 39.3 % (36.0-48.0); HEMOGLOBIN 13.6 g/dL (12-16); IMMATURE GRANULOCYTES 0.1 % (0-5); MCH 31.6 pg (26.0-34.0); MCHC 34.6 g/dL (31.0-37.0); MCV 91.4 fL (80.0-100.0); MEAN PLATELET VOLUME 9.9 fL (7.4-10.4); MONOCYTES 5.7 % (2-11); NEUTROPHILS 55.1 % (40-80); PLATELET COUNT 262 10x3/uL (130-400); RDW 12.3 % (11.5-14.5); WBC 8.3 10x3/uL (4.8-10.8)
[2018-09-22 19:06] LABS: ALBUMIN 4.4 g/dL (3.4-5.0); ALKALINE PHOSPHATASE 45 U/L (46-116); ALT (SGPT) 30 U/L (10-68); BILIRUBIN - TOTAL 0.67 mg/dL (0.2-1.3); CALC OSMOLALITY 282 mosm/kg (275-300); CALCIUM 9.2 mg/dL (8.5-10.1); CARBON DIOXIDE 27.1 mmol/L (21.0-32.0); CHLORIDE - SERUM 104 mmol/L (98-107); CREATININE - SERUM 0.8 mg/dL (0.6-1.3); GLUCOSE 96 mg/dL (74-106); MAGNESIUM - SERUM 1.8 mg/dL (1.8-2.4); POTASSIUM - SERUM 3.4 mmol/L (3.5-5.1); SODIUM 142 mmol/L (136-145); UREA NITROGEN 13 mg/dL (7-18); eGFR NON AFRICAN AMERICAN 90 mL/min (90-120)
[2018-09-22 19:10] LABS: HCG SERUM NEGATIVE (NEGATIVE)
[2018-09-22 19:30] LABS: APPEARANCE CLEAR (CLEAR); BILIRUBIN NEGATIVE (NEGATIVE); COLOR YELLOW (YELLOW); GLUCOSE NEGATIVE (NEGATIVE); KETONE MODERATE mg/dL (NEGATIVE); NITRITE NEGATIVE (NEGATIVE); PROTEIN NEGATIVE (NEGATIVE); SPECIFIC GRAVITY 1.025 (1.005-1.020); UROBILINOGEN NORMAL (NORMAL)
[2018-09-22 19:36] LABS: UDS - AMPHET NEGATIVE QUAL (NEGATIVE); UDS - BARB NEGATIVE QUAL (NEGATIVE); UDS - BENZO NEGATIVE QUAL (NEGATIVE); UDS - COCAINE NEGATIVE QUAL (NEGATIVE); UDS - OPIATE NEGATIVE QUAL (NEGATIVE); UDS - PCP NEGATIVE QUAL (NEGATIVE); UDS - THC POSITIVE QUAL (NEGATIVE)
--- NOTE | 2018-09-22 20:45 | NUR ---
DR ROMERO NOTIFIED AND REVIEWED PT BEHAVIOR AND ASSESSMENT RESULTS. PT IS A LOW RISK PER DR ROMERO. DR ROMERO STATED TO GIVE RESOURCES TO PT AT TIME OF DISCHARGE. NO FURTHER ORDERS AT THIS TIME. RESOURCES REVIEWED WITH PT AND SHE VERBALOZED UNDERSTANDING.
[2018-09-22 20:53] VITALS: BP 148/76
== END 2018-09-22 20:53 | disposition home or self-care (01) ==
LOC: D.ER 18:11
PROVIDERS: Family Medicine
DX: R45.851 Suicidal ideations (principal)